=== PATIENT | female | born 1975 | race Caucasian/White ===

== ENCOUNTER → 2016-06-05 | Outpatient (CLI) | payer OTHER ==
[~2016-06-05] MED LIST: MULTTAB58 PO
== END | disposition home or self-care (01) ==
LOC: C.PAPS 14:07
PROVIDERS: ATTEND Obstetrics & Gynecology
DX: Z12.4 Encounter for screening for malignant neoplasm of cervix (principal)

== ENCOUNTER → 2016-06-21 | Outpatient (CLI) | payer OTHER | END | disposition home or self-care (01) | LOC: C.PATHSPEC 14:21 | PROVIDERS: ATTEND Obstetrics & Gynecology | DX: N90.89 Other specified noninflammatory disorders of vulva and perineum (principal) ==

== ENCOUNTER → 2017-06-06 | Outpatient (CLI) | payer OTHER | END | disposition home or self-care (01) | LOC: C.PAPS 11:34 | PROVIDERS: ATTEND Obstetrics & Gynecology | DX: Z12.4 Encounter for screening for malignant neoplasm of cervix (principal) ==

== ENCOUNTER → 2017-08-02 | Outpatient (CLI) | payer OTHER ==
--- NOTE | 2017-08-03 07:20 | MAMMOGRAPHY REPORT ---
BILATERAL DIGITAL SCREENING MAMMOGRAM TOMOSYNTHESIS WITH CAD: 08/02/2017 CLINICAL HISTORY: Routine screening. Patient has no complaints. TECHNIQUE: Breast tomosynthesis in addition to standard 2D mammography was performed. Current study was also evaluated with a Computer Aided Detection (CAD) system. COMPARISON: Comparison is made to exam dated: 08/03/2015 mammogram - [facility]. BREAST COMPOSITION: The tissue of both breasts is extremely dense, which lowers the sensitivity of m ammography. FINDINGS: There is an 11 mm round partially circumscribed and partially obscured mass seen within the right medial subareolar breast, best seen on the CC tomosynthesis images, for which ultrasound and p ossible additional spot compression tomosynthesis views are recommended for further evaluation. This may represent a cyst. The remainder of both breasts are stable compared to prior exams, without suspicious masses, calcific ations, or areas of architectural distortion noted. IMPRESSION: ACR BI-RADS CATEGORY 0: INCOMPLETE EVALUATION: NEED ADDITIONAL IMAGING EVALUATION Right breast mass, for which additional imaging evaluation is recommended. The patient will be summers d to schedule an appointment. Approximately 10% of breast cancers are not detected with mammography. A negative mammographic report should not delay biopsy if a clinically suggestive mass is present. Sofie Jett M.D. ah/:08/02/2017 16:59:14 Metal Engraver: Jeri JARQUIN(Diane)(Elias)([place]), [facility] letter sent: Addl Imaging 0 BI-RADS Code: ACR BI-RADS Category 0: Incomplete Evaluation: Need Additional Imaging Evaluation
== END | disposition home or self-care (01) ==
LOC: C.MAMM 12:09
PROVIDERS: ATTEND Obstetrics & Gynecology
DX: Z12.31 Encounter for screening mammogram for malignant neoplasm of breast (principal); N63.10 Unspecified lump in the right breast, unspecified quadrant

== ENCOUNTER → 2017-08-08 | Outpatient (CLI) | payer OTHER ==
--- NOTE | 2017-08-08 15:23 | MAMMOGRAPHY REPORT ---
ULTRASOUND OF RIGHT BREAST: 08/08/2017 CLINICAL HISTORY: Callback from screening mammogram for partially circumscribed 11 mm mass seen withi n the right subareolar breast. COMPARISON: Comparison is made to exams dated: 08/02/2017 mammogram and 08/03/2015 mammogram - [facility]. TECHNIQUE: Real-time targeted ultrasound of the right breast was performed. FINDINGS: Real-time, high-resolution targeted ultrasound was performed of the right subareolar breast in the region of the mammographic mass. In the right subareolar breast, there is a round circumscri bed anechoic 9 x 8 x 8 mm mass. This corresponds with the mammographic mass and is consistent with a benign cyst. A few other smaller anechoic benign cysts were seen during the exam, including a 5 x 6 mm cyst in the right 9:00 subareolar breast and 2 adjacent cysts in the right 12:00 subareolar breas t, one measuring 4 x 5 mm and the other measuring 6 mm. No suspicious solid masses were evident. IMPRESSION: ACR BI-RADS CATEGORY 2: BENIGN Benign 9 mm cyst in the right subareolar breast on ultrasound, which corresponds with the mammographi c mass. There is no sonographic evidence of malignancy. A 1 year screening mammogram is recommended . The patient was verbally notified of the results. Sofie Jett M.D. ah/:08/08/2017 14:35:14 Family Literacy Coordinator: Carrie SOLOMON)(Elias), [facility] letter sent: Normal 1/2 BI-RADS Code: ACR BI-RADS Category 2: Benign
== END | disposition home or self-care (01) ==
LOC: C.MAMM 14:16
PROVIDERS: ATTEND Obstetrics & Gynecology
DX: N60.01 Solitary cyst of right breast (principal)